=== PATIENT | male | born 1945 ===

== ENCOUNTER → 2017-10-08 | Outpatient (CLI) | payer MEDICARE, SELFPAY | LOC: LAB SHORT 13:50 → LAB 13:50 | PROVIDERS: Internal Medicine Hematology & Oncology | DX: Z12.5 Encounter for screening for malignant neoplasm of prostate (principal) | CPT/HCPCS: G0103 ==

== ENCOUNTER 2020-05-11 03:24 | Observation (INO) | payer OTHER, MEDICARE ==
[~2020-05-11] VITALS: Ht 185.4 cm; Wt 96.8 kg
[2020-05-11 03:54] LABS: BASOPHILS ABSOLUTE AUTO 0.04 K/mm3 (0.00-0.23); BASOPHILS PERCENT AUTO 1 % (0-2); EOSINOPHILS PERCENT AUTO 5 % (0-6); Hematocrit 21.5 % (37.0-53.0); Hemoglobin 6.6 g/dL (13.5-17.5); IMMATURE GRAN ABSOLUTE AUTO 0.02 K/mm3 (0.00-0.10); IMMATURE GRAN PERCENT AUTO 1 % (0-1); LYMPHOCYTES ABSOLUTE AUTO 1.54 K/mm3 (0.84-5.20); LYMPHOCYTES PERCENT AUTO 36 % (21-46); MONOCYTES ABSOLUTE AUTO 0.63 K/mm3 (0.16-1.47); MONOCYTES PERCENT AUTO 15 % (4-13); Mean Corpuscular HGB 26.7 pg (26.0-34.0); Mean Corpuscular HGB Conc 30.7 g/dL (31.5-36.5); Mean Corpuscular Volume 87 fL (80-100); NEUTROPHILS ABSOLUTE AUTO 1.85 K/mm3 (1.96-9.15); NEUTROPHILS PERCENT AUTO 43 % (41-73); Platelet Count 198 K/mm3 (150-400); RDW Coefficient Variation 13.7 % (11.7-14.2); RDW Standard Deviation 43.5 fL (35.1-46.3); Red Blood Cell Count 2.47 M/mm3 (4.30-5.90); White Blood Cell Count 4.28 K/mm3 (4.00-11.30)
[2020-05-11 04:12] LABS: Troponin I <0.015 ng/mL (0.000-0.040)
[2020-05-11 04:13] LABS: Alanine Aminotransfer (ALT/SGP 24 U/L (12-78); Albumin, Blood 2.7 g/dL (3.4-5.0); Albumin/Globulin Ratio 0.8 (0.8-1.8); Alk Phos 84 U/L (50-136); Anion Gap 8 mmol/L (6-16); Aspartate Aminotrans (AST/SGOT 16 U/L (12-37); Bilirubin, Total 0.7 mg/dL (0.1-1.0); Blood Urea Nitrogen 14 mg/dL (8-24); Bun/Creatinine Ratio 17.7 (12.0-20.0); CO2, Blood 23 mmol/L (21-32); Calcium, Blood 8.3 mg/dL (8.5-10.1); Chloride, Blood 112 mmol/L (98-108); Creatinine, Blood 0.79 mg/dL (0.60-1.20); Globulin, Blood 3.2 g/dL (2.2-4.0); Glomerular Filtration Rate >60 (60-); Glucose, Blood 122 mg/dL (70-99); Potassium, Blood 3.5 mmol/L (3.5-5.5); Sodium, Blood 143 mmol/L (136-145); Total Protein, Blood 5.9 g/dL (6.4-8.2)
[2020-05-11 04:47] LABS: International Normalized Ratio 0.99; Prothrombin Time Results 10.6 Sec (9.7-11.5)
[2020-05-11 12:09] LABS: Hematocrit 25.9 % (37.0-53.0); Hemoglobin 8.1 g/dL (13.5-17.5)
[2020-05-11] MEDS ORDERED: DONEPEZIL HCL10 MG PO (14:48)
[2020-05-11] MEDS ORDERED: FINA5 PO (14:49)
[2020-05-11] MEDS ORDERED: GEMF600 PO (14:49)
[2020-05-11] MEDS ORDERED: TAMS.4ER PO (14:49)
--- NOTE | 2020-05-11 18:14 | NUR ---
ADMIT NOTE RECEIVED REPORT FROM TIMOTEO MEJIA IN ED. PT TO ROOM AT 1435. PT REPORTS PASSING OUT LAST NIGHT AFTER HAVING A BLOODY BM AT HOME. PER REPORT RED BLOODY STOOL IN ED. NO BM SINCE ADMISSION. PT AND DAUGHTER ORIENTED TO ROOM AND CALL LIGHT. EDUCATED ON FALL RISK AND BEDREST ORDERS. PT A&Ox4; FORGETFUL AT TIMES. PT DAUGHTER STATES HE HAS HX OF DEMENTIA. PT DENIES PAIN, NAUSEA, SOB, AND DIZZINESS. SPO2 >90% ON RA. DR SOLITARIO IN TO SEE PT, OK TO START ON CLEAR LIQUIDS. VSS. NO OTHER ACUTE CHANGES NOTED DUIRNG SHIFT. WILL CONTINUE TO MONITOR UNITL REPORT GIVEN TO ONCOMING RN.
[2020-05-11 18:31] LABS: Hematocrit 26.3 % (37.0-53.0); Hemoglobin 8.3 g/dL (13.5-17.5)
[2020-05-12 00:35] LABS: Hematocrit 24.4 % (37.0-53.0); Hemoglobin 7.7 g/dL (13.5-17.5)
[2020-05-12 04:03] LABS: BASOPHILS ABSOLUTE AUTO 0.04 K/mm3 (0.00-0.23); BASOPHILS PERCENT AUTO 1 % (0-2); EOSINOPHILS ABSOLUTE AUTO 0.13 K/mm3 (0.00-0.68); EOSINOPHILS PERCENT AUTO 2 % (0-6); Hematocrit 25.5 % (37.0-53.0); Hemoglobin 8.1 g/dL (13.5-17.5); IMMATURE GRAN ABSOLUTE AUTO 0.01 K/mm3 (0.00-0.10); IMMATURE GRAN PERCENT AUTO 0 % (0-1); LYMPHOCYTES ABSOLUTE AUTO 1.53 K/mm3 (0.84-5.20); LYMPHOCYTES PERCENT AUTO 28 % (21-46); MONOCYTES ABSOLUTE AUTO 0.75 K/mm3 (0.16-1.47); MONOCYTES PERCENT AUTO 14 % (4-13); Mean Corpuscular HGB 27.6 pg (26.0-34.0); Mean Corpuscular HGB Conc 31.8 g/dL (31.5-36.5); Mean Corpuscular Volume 87 fL (80-100); NEUTROPHILS ABSOLUTE AUTO 3.08 K/mm3 (1.96-9.15); NEUTROPHILS PERCENT AUTO 56 % (41-73); Platelet Count 183 K/mm3 (150-400); RDW Coefficient Variation 14.1 % (11.7-14.2); RDW Standard Deviation 44.2 fL (35.1-46.3); Red Blood Cell Count 2.94 M/mm3 (4.30-5.90); White Blood Cell Count 5.54 K/mm3 (4.00-11.30)
[2020-05-12 04:22] LABS: Alanine Aminotransfer (ALT/SGP 22 U/L (12-78); Albumin, Blood 2.8 g/dL (3.4-5.0); Albumin/Globulin Ratio 0.9 (0.8-1.8); Alk Phos 88 U/L (50-136); Anion Gap 5 mmol/L (6-16); Aspartate Aminotrans (AST/SGOT 18 U/L (12-37); Bilirubin, Total 1.4 mg/dL (0.1-1.0); Blood Urea Nitrogen 14 mg/dL (8-24); Bun/Creatinine Ratio 17.9 (12.0-20.0); CO2, Blood 26 mmol/L (21-32); Calcium, Blood 8.8 mg/dL (8.5-10.1); Chloride, Blood 110 mmol/L (98-108); Creatinine, Blood 0.78 mg/dL (0.60-1.20); Globulin, Blood 3.2 g/dL (2.2-4.0); Glomerular Filtration Rate >60 (60-); Glucose, Blood 99 mg/dL (70-99); Potassium, Blood 3.5 mmol/L (3.5-5.5); Sodium, Blood 141 mmol/L (136-145)
--- NOTE | 2020-05-12 04:35 | NUR ---
END OF SHIFT SUMMARY NO ACUTE CHANGES THIS SHIFT. AXO, NO EPISODES REMNISCENT OF DEMENTIA NOTED. PT RANGING FROM SR TO SB 50'S TO 70'S. BP STABLE. REMAINS ON RA. HAS NOT HAD BM THIS SHIFT. VOIDING IN URINAL, LIGHT YELLOW. HEAD CT COMPLETED AT BEGINNING OF SHIFT, AWAITING REPORT IN AM. PT ON CL, W/OUT REDS. AND OTHERWISE HAS BEEN RESTING THIS SHIFT. USES CALL LIGHT APPROPRIATELY. WILL CONTINUE TO MONITOR UNTIL SHIFT CHANGE.
--- NOTE | 2020-05-12 17:53 | NUR ---
SHIFT SUMMARY PT A&Ox4; FORGETFUL AT TIMES. PT RESTING IN BED DURING SHIFT. UP TO BSC WITH ONE PERSON ASSIST. PT HAD ONE SMALL BP DARK BROWN WITH DARK RED/MAROON NOTED; NOTIFIED DR LOVE NEW ORDERS FOR H&H Q6x4. PT DENIES PAIN, NAUSEA, SOB, DIZZINESS AND NUMB/TINGLING. PT ADVANCED TO SOFT DIET. NOTIFEID DR LUX THAT HOME MEDICATIONS NOT ORDER; NEW ORDERS ENTERED. VSS. NO OTHER ACUTE CHANGES NOTED DURING SHIFT. WILL CONTINUE TO MONITOR UNITL REPORT GIVEN TO ONCOMING RN.
[2020-05-12 18:14] LABS: Hematocrit 28.3 % (37.0-53.0); Hemoglobin 9.1 g/dL (13.5-17.5)
[2020-05-13 01:16] LABS: Hematocrit 25.3 % (37.0-53.0); Hemoglobin 7.9 g/dL (13.5-17.5)
--- NOTE | 2020-05-13 04:57 | NUR ---
SHIFT SUMMARY PT WAS ALERT AND ORIENTED T/O SHIFT AND COOPERATIVE WITH CARE. BP WAS HYPOTENSIVE 118-95 SYSTOLIC. HR IN THE 60'S. O2 SATS IN THE 90'S ON ROOM AIR, PT DENIED ANY SOB OR DIZZINESS. PT HAD ONE BM THAT WAS MAJORITY BRIGHT RED BLOOD, ABOUT 50ML. 0100 LABS SHOWED HGB OF 7.9 DOWN FROM 9.1 AT 1730. PT DENIES ANY ABD PAIN, BOWEL TONES ARE NORMOACTIVE. NEXT H&H AT 0600. PT HAD UNEVENTFUL NIGHT. WILL CONTINUE TO MONITOR UNTIL SHIFT CHANGE.
[2020-05-13 06:55] LABS: BASOPHILS ABSOLUTE AUTO 0.05 K/mm3 (0.00-0.23); BASOPHILS PERCENT AUTO 1 % (0-2); EOSINOPHILS ABSOLUTE AUTO 0.15 K/mm3 (0.00-0.68); EOSINOPHILS PERCENT AUTO 3 % (0-6); Hematocrit 25.1 % (37.0-53.0); IMMATURE GRAN ABSOLUTE AUTO 0.02 K/mm3 (0.00-0.10); IMMATURE GRAN PERCENT AUTO 0 % (0-1); LYMPHOCYTES ABSOLUTE AUTO 1.35 K/mm3 (0.84-5.20); LYMPHOCYTES PERCENT AUTO 27 % (21-46); MONOCYTES ABSOLUTE AUTO 0.69 K/mm3 (0.16-1.47); MONOCYTES PERCENT AUTO 14 % (4-13); Mean Corpuscular HGB 27.8 pg (26.0-34.0); Mean Corpuscular HGB Conc 31.9 g/dL (31.5-36.5); Mean Corpuscular Volume 87 fL (80-100); NEUTROPHILS ABSOLUTE AUTO 2.75 K/mm3 (1.96-9.15); NEUTROPHILS PERCENT AUTO 55 % (41-73); Platelet Count 169 K/mm3 (150-400); RDW Coefficient Variation 14.4 % (11.7-14.2); RDW Standard Deviation 45.2 fL (35.1-46.3); Red Blood Cell Count 2.88 M/mm3 (4.30-5.90); White Blood Cell Count 5.01 K/mm3 (4.00-11.30)
[2020-05-13 07:11] LABS: Alanine Aminotransfer (ALT/SGP 24 U/L (12-78); Albumin, Blood 2.8 g/dL (3.4-5.0); Albumin/Globulin Ratio 0.8 (0.8-1.8); Alk Phos 88 U/L (50-136); Anion Gap 5 mmol/L (6-16); Aspartate Aminotrans (AST/SGOT 15 U/L (12-37); Bilirubin, Total 1.1 mg/dL (0.1-1.0); Blood Urea Nitrogen 14 mg/dL (8-24); Bun/Creatinine Ratio 17.6 (12.0-20.0); CO2, Blood 27 mmol/L (21-32); Calcium, Blood 9.1 mg/dL (8.5-10.1); Chloride, Blood 109 mmol/L (98-108); Globulin, Blood 3.4 g/dL (2.2-4.0); Glomerular Filtration Rate >60 (60-); Glucose, Blood 99 mg/dL (70-99); Potassium, Blood 3.6 mmol/L (3.5-5.5); Sodium, Blood 141 mmol/L (136-145); Total Protein, Blood 6.2 g/dL (6.4-8.2)
--- NOTE | 2020-05-13 08:00 | NUR ---
pt laying in bed awake a/ox3, pleasant and cooperative with care, follows commands well, denies pain, or complaints, states he slept on and off, is hoping to go home today, lungs are clear t/o, resp even and unlabored, no cough noted, hrr, tele in place running sr per monitor, see strip, no edema noted, ppp+2, cap refill <3sec, vs stable, afebrile, iv sites are clear and patent, btx4, abd flat soft nontender, voids via urinal, skin c/w/d, maew, ellen, call light in reach.
[2020-05-13] MEDS ORDERED: ACET325 PO (10:03)
[2020-05-13] MEDS ORDERED: DOCU100 PO (10:04)
[2020-05-13] MEDS ORDERED: ONDA4ODT MM (10:05)
--- NOTE | 2020-05-13 11:20 | NUR ---
pt has been discharged to home, went over discharge instructions with him and , gave her script for lab draw in 2 days, faxed new meds to their pharmacy, they verbalized understanding. iv x2 removed intact, he has had a shower, and is dressed, left via wheelchair with orthoptist in attendence. pt has all belongings.
== END 2020-05-13 11:23 | disposition home or self-care (01) ==
LOC: ER 03:24 → ERHOLD 03:25 → PCU 03:25 → ERHOLD 03:25 → PCU 14:34
PROVIDERS: Emergency Medicine; Family Medicine; ADMIT Internal Medicine
PROC: 30233N1 Transfusion of Nonautologous Red Blood Cells into Peripheral Vein, Percutaneous Approach (ICD-10-PCS; principal; 2020-05-12)
DX: K92.1 Melena (principal); D50.0 Iron deficiency anemia secondary to blood loss (chronic); Z79.899 Other long term (current) drug therapy; Z23 Encounter for immunization
CPT/HCPCS: 36415; 36430; 70450; 80053; 84484; 85014; 85018; 85025; 85610; 85730; 86850; 86900; 86901; 86923; 93005; 93010; 99285-25; G0378; J7030; P9016